=== PATIENT | female | born 1960 | race African-American/Black ===

== ENCOUNTER 2025-01-30 10:05 | Outpatient (CLI) | payer BC, SELFPAY ==
--- OUTSIDE RECORDS SUMMARY | 2024-05-18 16:30 | XMS_ITS ---
Author Organization [facility] Address [address] [place], [place] [address] Care Team Providers Care Engraver Ornamental Design Name Role Phone Lucas Gooden Unavailable [phone] Migration, Provider Unavailable Unavailable REASON FOR VISIT Multum To Medispan Conversion Encounter Medications Medication SIG (Take, Route, Frequency, Duration) Notes Start Date End Date Status Vitamin D (Ergocalciferol) 1.25 MG (85546 UT) 1 cap(s) orally 2 times a week Active Plaquenil 200 MG 1 tab(s) orally once a day Active Losartan Potassium 25 MG 1 tab(s) orally once a day Active Diclofenac Potassium 18 MG 1 CAP(S) ORALLY 3 TIMES A DAY *Please review and pick correct strength-formulatio n from Medispan options. If intended option is not shown, discontinue and re-order from Quick Search* Active diazePAM 2 MG 1 tab(s) orally 1 tab 1 hour prior to MRI; Duration: 0 11/09/2017 Active ANTI INFLAMMATORY QD *Please review for potential replacement for e-prescription and drug interaction check* Active Encounters Encounter Location Date Provider Diagnosis [facility] [address] [place], [place] [id number] 05/18/2024 Provider Migration Tinnitus, left ear H93.12 Assessments Encounter Date Diagnosis (ICD Code) Assessment Notes Treatment Notes Treatment Clinical Notes Section Notes 05/18/2024 Tinnitus, left ear (ICD-10 - H93.12) possible hydrops Plan Of Treatment Medication Medication Name Sig Start Date Stop Date Notes diazePAM 2 MG 1 tab(s) orally 1 ta b 1 hour prior to MRI; Duration: 0 11/09/2017 Progress Notes * Opal DANIELSONOB: 2 (64 yo F)Acc No.[id number]:05/18/2024 Patient: Howie YEPEZ Provider: Monico Peres :1960 A ge:64 Y S ex:Female Date:05/18/2024 Address:[address] [place] [address] , [facility] Subjective: * Chief Complaints: * 1 . Multum To Medispan Conversion Encounter. * Medical History: * Medications: T aking ANTI INFLAMMATORY QD , Notes to Pharmacist: *Please review for potential replacement for e-prescription and drug interaction check*, Taking Losartan Potassium 25 MG Tablet 1 tab(s) orally once a day , Taking Diclofenac Potassium 18 MG CAPSULE 1 CAP(S) ORALLY 3 TIMES A DAY , Notes to Pharmacist: *Please review and pick correct strength-formulation from [facility]. If intended option is not shown, discontinue and re-order from Quick Search*, Taking Vitamin D (Ergocalciferol) 1.25 MG (74411 UT) Capsule 1 cap(s) orally 2 times a week , Taking Plaquenil 200 MG Tablet 1 tab(s) orally once a day Objective: * Vitals: * Physical Examination: Assessment: * Assessment: 1. T innitus, left ear - H93.12 (Primary) N otes :possible hydrops Plan: * Treatment: * Images: * Electronic signature of Prov ider Migration on 01/30/2025 at 10:15 AM CDT Sign off status: Pending * Provider: Monico Peres Date: 1 07/19/2023 Generated for Laury serna/Harman/Lisbethsmitting on: 0 01/30/2025 10:15 AM CDT
--- OUTSIDE RECORDS SUMMARY | 2025-01-30 10:15 | XMS_ITS | Encounter Summary ---
Author Organization [facility] Address [address] [place] [address] Care Team Providers Care Snow Shoveler Name Role Phone Bettie Torres MD Primary Care Provider [phone] Reason for Visit * Reason Onset Date Comments Appointment 02/16/2023 Encounter Details Date Type Department Care Team (Late st Contact Info) Description 02/16/2023 Telephone [facility] - Centralized Scheduling [address] [place] [address] [place] [address] [address] Appointment Social History Tobacco Use Types Packs/Day Years Used Date Smoking Tobacco: Never Alcohol Use Standard Drinks/Week Comments Not Asked 0 (1 standard drink = 0.6 oz pur e alcohol) Comments No Sex and Gender Information Value Date Recorded Sex Assigned at Not on file 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 documented in this encounter Plan of Treatment Not on file documented as of this encounter Visit Diagnoses Not on filedocumented in this encounter Care Teams Snow Shoveler Relationship Specialty Start Date End Date Bettie Torres MD [address] [address] PCP - General Internal Medicine 11/19/24 documented as of this encounter
--- OUTSIDE RECORDS SUMMARY | 2025-01-30 10:16 | XMS_ITS | Clinical Summary ---
Author Organization [facility] Address [address] [facility] [address] [place] [address] Phone Care Team Providers Care Allergy Specialist Name Role Phone Shana Chang MD Unavailable [phone] Abhijeet Glover MD Unavailable [phone] Dev Albarran OD Unavailable Bettie Torres MD Primary Care Provider [phone] Allergies No known active allergies Medications pediatric prbtuzou-lalh-a in (MULTI-VITAMINS WITH IRON) tablet,chewable take by Oral route every 0 9 Active biotin 5 mg capsule 5 mg. 0 0 Active vitamin B complex (COMPLEX B-100) tablet extended release 0 3 Active cholecalciferol (VITAMIN D3) 400 unit capsule 0 3 Active calcium (CALCIO CHELE) 500 mg tablet 500 mg. [address] (VOLTAREN) 75 mg EC tablet Take 1 tablet (75 mg total) by mouth 2 (two) times a day. 180 tablet 1 7 Active montelukast (SINGULAIR) 10 mg tablet TAKE 1 TABLET(10 MG) BY MOUTH EVERY NIGHT 90 tablet 3 9 Active hydrOXYchloroQU INE (PLAQUENIL) 200 mg tablet Take 400 mg by mouth daily 1 Active olmesartan-hydr ochlorothiazide (BENICAR HCT) 40-25 mg per tablet TAKE 1 TABLET BY MOUTH DAILY 90 tablet 2 Active atorvastatin (LIPITOR) 20 mg tablet TAKE 1 TABLET(20 MG) BY MOUTH EVERY NIGHT AT BEDTIME 2 Active cetirizine (ZyrTEC) 10 mg tablet Take 10 mg by mouth daily 2 Active metFORMIN (GLUCOPHAGE) 500 mg tablet TAKE 1 TABLET(500 MG) BY MOUTH DAILY WITH BREAKFAST 2 Active semaglutide (OZEMPIC) 0.25 mg or 0.5 mg(2 mg/1.5 mL) pen injector injection Inject 0.5 mg under the skin once a week 2 Active Active Problems Problem Noted Date Diagnosed Date Seronegative rheumatoid arthritis of multiple si raman 03/06/2022 Anemia 05/10/2017 Connective tissue disease 01/20/2017 High risk medication use 01/20/2017 Vitamin D deficiency 01/20/2017 Chronic right shoulder pain 01/20/2017 Antinuclear factor positive 10/19/2013 Overview (09/08/2016): Positive ANASTASIIA Impingement syndrome of shoulder region 10/20/19 14 Overview (09/08/2016): Shoulder impingement syndrome Arthralgia 10/19/2013 Overview (09/09/2016): Arthralgia Eczema 10/19/2013 Overview (09/10/2016): Eczema Abnormal C-reactive protein 05/25/2011 Overview (09/08/2016): Elevated C-Reactive Protein (CRP) Elevated erythrocyte sedimentation rate 05/25/20 11 Overview (09/08/2016): Elevated Sed Rate Benign hypertension 12/31/2009 Overview (09/10/2016): BENIGN HYPERTENSION Resolved Problems Problem Noted Date Diagnosed Date Resolved Date Postmenopausal bleeding 03/29/201603/06 Overview (09/09/2016): Postmenopausal bleeding Encounters Date Type Department Care Team Description 01/15/2025 9:12 AM CDT - 01/15/2025 11:59 PM CDT Hospital Encounter [facility] [address] [place] [phone] Screening mammogram, encounter for Discharge Disposition: Discharge to home or self care from Last 3 Months Immunizations Immunization Administration Dates Next Due Influenza, Quadrivalent, Rec ombinant, Egg Free, Preservative Free, Intramuscular 03/23/2016 Influenza, Quadrivalent, Spl it, Preservative Free, Intradermal 03/23/2016 Influenza, Quadrivalent, Spl it, Preservative Free, Intramuscular 03/20/2021,03/28/2019,03/01/2018,03/01 Influenza, Split 04/12/2013, 2,04/07/2011,04/15 Influenza, Trivalent, IM (MDV) 04/12/2013,2012,03/07/2011 Influenza, Trivalent, Split, Preservative Free, Intradermal 02/27/2014 Influenza, Unspecified 04/05/2020,2013,04/12/2013,09/03,05/17/2012,04/07/2011,03/07/2011 ,04/15/2010 Pfizer SARS-CoV-2 Monovalent Vaccination (12+ Yrs) KOCH-READY TO USE 09/30/2021 Pfizer SARS-CoV-2 Monovalent Vaccination (12+ Yrs) PURPLE 01/23/2021,09/01/2020,08/11/2020 Tdap 03/01/2018 ZOSTER Recombinant 11/30/2020,09/22/2020 Surgical History Surgery Date Site/Laterality Comments OTHER SURGICAL HISTORY Arthrocentesis of the left shoulder anterior aspect CHOLECYSTECTOMY 06/05/1999 - 06/04/2000 Cholecystectomy Medical History Medical History Date Comments Eczema Eczema History of multiple allergies Al lergies Hypertension Hypertension Bronchitis Bronchitis Anemia Anemia Arthritis Arthritis Hx Other Medical connective tiss ue disease Postmenopausal bleeding 03/29/2016 Postmeno pausal bleeding Family History Medical History Relation Name Comments Hypertension Father Hypertension; Hyperthyroidism Father Hyperthyroid ism; Other Father Cancer -rectal; Prostate cancer Father Cancer -pros san; Diabetes Mother Diabetes mellit us; Diabetes type II Mother Diabetes -T ype II; Other Mother stomach; Other Other 1 No family histo ry of Coronary artery disease; Prostate cancer Other 2 Family histo ry of Cancer -prostate; Diabetes type II Other 3 Family hist ory of Diabetes -Type 2; Hypertension Other 4 Family history of Hypertension; Other Other 5 No family histo ry of Stroke; Cancer Other 6 Family history of Cancer; Diabetes Other 7 Family history of Diabetes mellitus; Hyperthyroidism Sister Hyperthyroid ism; Breast cancer Neg Hx Endometrial cancer Neg Hx Ovarian cancer Neg Hx Pancreatic cancer Neg Hx Thyroid cancer Neg Hx Relation Name Status Comments Father Mother Other 1 Other 2 Other 3 Other 4 Other 5 Other 6 Other 7 Sister Social History Tobacco Use Types Packs/Day Years Used Date Smoking Tobacco: Never Smokeless Tobacco: Never Alcohol Use Standard Drinks/Week Comments Yes 0 (1 standard drink = 0.6 oz pur e alcohol) PHQ-2 Answer Date Recorded PHQ-2 Total Score (If total score is 3 or more points, staff should administer the PHQ-9) 0 09/22/2020 Comments No Sex and Gender Information Value Date Recorded Sex Assigned at Not on file Legal Sex 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 Gender Identity Not on file Sexual Orientation Not on file Obstetrics History Para Term AB IAB SAB Ectopic Multiple Livin g Live Births 1 1 1 Date Outcome GA Total Labor Labor/2nd/3rd Weight Sex Type Anes PTL Yarely A1 A5 Name Clin Term Last Filed Vital Signs Vital Sign Reading Time Taken Comments Blood Pressure 120/77 09/22/2020 1:22 PM CDT Pulse 82 09/22/2020 1:22 PM CDT Temperature 36.8 C (98.2 F) 05/10/2017 3:44 PM TANK FURNACE OPERATOR Respiratory Rate 16 05/10/2017 3:44 PM TANK FURNACE OPERATOR Oxygen Saturation 97% 05/10/2017 3:44 PM TANK FURNACE OPERATOR Inhaled Oxygen Concentration - - Weight 105.2 kg (231 lb 14.8 oz) 01/15/2025 9:16 AM CDT Height 165.1 cm (5' 5) 01/15/2025 9:16 AM CDT Body Mass Index 38.59 01/15/2025 9:16 AM CDT Plan of Treatment Health Maintenance Due Date Last Done Comments Hepatitis B Screening 02/12/1980 Pneumococcal vaccine <65 (1 of 2 - PCV) 1981 Cervical Cancer Screening 06/30/2017 06/30/2016 Depression Screening 09/22/2021 09/22/2020, 03/28/2019, 09/27/2018, Additional history exists Regular Well Visit/Exam 18-64 09/22/2021, 09/27/2018, 03/01/2017 Colon Cancer Screening-Colonoscopy 01/21/2023 01/21/2013 Covid-19 Vaccine (2023-2 5 season) 2024 09/30/2021, 01/23/2021, 09/01/2020, Additional history exists Influenza Vaccine (#1) 2025 , 03/20/2023, 02/24/2022, Additional history exists Breast Cancer Screening-Mammogram 01/15/2027 01/15/2025, 01/06/2024, 12/17/2022, Additional history exists DTaP/Tdap/Td Vaccine (2 - Td or Tdap) 03/01/2028 03/01/2018 Colon Cancer Screening-CT Colonography Discontinued 01/21/2013 Colon Cancer Screening-DNA Stool Discontinued 01/22/20 Colon Cancer Screening-FIT Discontinued 01/21/2013 Colon Cancer Screening-Sigmoidoscopy Discontinued 01/21/2013 Hepatitis C Screening Completed 09/27/2018 Zoster Vaccine Completed 11/30/2020, 09/22/2020 Procedures Procedure Name Priority Date/Time Associated Diagnosis Comments SCREENING MAMMOGRAM BILATERAL W SARKIS Schedule Routine, Read Routine (OP Routine) 01/15/2025 9:33 AM CDT Screening mammogram, encounter for HEPATITIS C ANTIBODY Routine 09/27/2018 7:04 PM CDT Need for hepatitis C screening test HM PAP SMEAR WITH HPV Routine 06/30/2016 COLONOSCOPY REPORT 01/21/2013 from Last 3 Months or Most Recently Relevant to Health Maintenance Results * Screening Mammogram Bilateral W Sarkis (01/15/2025 9:33 AM CDT) Anatomical Region Laterality Modality Breast Bilateral Mammography Impressions 01/15/2025 3:28 PM CDT Bilateral No evidence of malignancy in either breast. OVERALL BI-RADS FINAL ASSESSMENT: 1 - Negative RECOMMENDATION: Recommend bilateral annual screening mammography. Narrative 01/15/2025 3:28 PM CDT EXAMINATION: Screening Mammogram Bilateral W Sarkis: 01/15/2025 COMPARISON: Relevant prior studies available at the time of interpretation were reviewed, including the most recent mammogram on: 01/06/2024. TECHNIQUE: Mammography was performed with 2D and 3D digital breast tomosynthesis (DBT) images. CAD was utilized. BREAST PARENCHYMAL COMPOSITION: There are scattered areas of fibroglandular density. FINDINGS: Bilateral There is no suspicious mass, calcification, or architectural distortion in either breast. [facility] Screening Mammogram IMG MAMMO PROCEDURES Fi nal Result * Hepatitis C antibody (09/27/2018 7:04 PM CDT) Hep C Ab Negative Negative [facility] Blood specimen (specimen) 09/27/2018 7:04 PM CDT 09/27/2018 7:05 PM CDT Narrative [facility] - 09/27/2018 9:13 PM CDT Bradley August MD LAB MICROBIOLOGY - [facility] ORDERABLES Final Result JORJE [id number] [facility] Department [place] [address] * HM PAP SMEAR WITH HPV (06/30/2016) HM Pap smear Normal Historical Provider HEALTH MAINTENANCE Final Result * COLONOSCOPY REPORT (01/21/2013) Anatomical Region Laterality Modality Other Narrative 01/21/2013 Ordered by an unspecified provider. Historical Provider GI PROCEDURE ORDERABLES F inal Result from Last 3 Months or Most Recently Relevant to Health Maintenance Insurance [facility] Member Subscriber Plan / Payer ( fective 2015-Present) Name:Howie Danielson Relation to Subscriber:Self Name:Howie Danielson Payer ID:[id number] (NAIC) Group ID:[id number] Type:ALEXANDRA MARIN Address: [facility] [id number] [place] [id number] Care Teams Allergy Specialist Relationship Specialty Start Date End Date Bettie Torres MD [address] [place] [address] PCP - General Internal Medicine 11/11/22 Shana Chang MD [address] [facility] [address] [place] [address] Consulting Physician Obstetrics and Gynecology 09/22/20 Abhijeet Glover MD [address] [facility] [address] [place] [address] Consulting Physician Rheumatology 10/25/20 Dev Albarran OD [address] [address] Optometry 11/15/20
--- OUTSIDE RECORDS SUMMARY | 2025-01-30 10:16 | XMS_ITS | Patient Health Record ---
Author Organization [facility] Address [address] [place], [place] [address] Care Team Providers Care Ota Name Role Phone LIBIA PEARL, JEFF SIMON Primary Care Provide r Unavailable kealbertinaKumar De Los Santos Unavailable [phone] ALLERGIES Allergen (clinical drug ingredient) Drug/Non Drug Allergy documented on EMR Reaction Allergy Type Onset Date Status none (uncoded) Unknown Allergy Activ e REASON FOR REFERRAL No Information MEDICATIONS Medication SIG (Take, Route, Frequency, Duration) Notes Start Date End Date Status Vitamin C Active biotin Active hydroxychloroquine 200 mg 2 tab(s) orall y once a day for 90 days Active hydrochlorothiazide-losartan 25 mg-100 mg 1 tab(s) orally once a day Active diclofenac sodium 75 mg 1 tab(s) orally 1-2 times a day Active Vitamin D3 2000 intl units 1 tab(s) oral ly once a day Active SOCIAL HISTORY Tobacco Use: Social History Observation Description Date Details (start date - stop date) Never Smoker NA - NA Sex Assigned At : Social History Observation Description Sex Assigned At Unknown Tobacco Use: Question Answer Notes Smoking Status nonsmoker PROBLEMS Problem Type ICD Code Onset Dates Problem Status W/U Status Risk SNOMED Code Notes Problem Hypertension, unspecified type (I10) Active confirmed 29327092 Problem Nonsmoker (Z78.9) Active confirmed 8392 000 Problem Polyarthralgia (M25.50) Active confirmed 92446472 Problem Other termite inspector (current) drug therapy (Z79.899) Active confirmed 590155730 Problem Low back pain (M54.5) Active confirmed 971506179 Problem Positive ANASTASIIA (antinuclear antibody) (R76.8) Active confirmed 248764667 PLAN OF TREATMENT No Information Insurance Providers Payer Name Payer Address Payer Phone Subscriber Number Group Number Insured Name Patient Relationship to Insured Coverage Start Date Coverage End Date [facility] [address] [address] [place] [address] [id number] Howie Landers Self - patient is the insured 6 MEDICAL (GENERAL) HISTORY Medical History History ICD Code poor circulation gas vaginal discharge HT IBS hemorrhoids nausea cataracts hearing loss anemia occasional tension headache tinnitus sinus problems high blood pressure constipation irritable bowel syndrome gallstones Surgical History Surgery Date(Month/Year) cholecystectomy 1999 gallbladder surgery 1999 Hospitalization History Reason Date(Month/Year) None
--- OUTSIDE RECORDS SUMMARY | 2025-01-30 10:16 | XMS_ITS | Clinical Summary ---
Author Organization [facility] Address [address] [facility] [place] [address] Care Team Providers Care Ict Support Technicians Name Role Phone Unavailable Primary Care Provider Unavailabl e Allergies No known active allergies Medications cholecalciferol , vitamin D3, (Cholecalcifero l, VitD3,, Bulk,) 100,000 unit/gram Powder Take 400 Int'l Units by mouth daily. Active multivitamin (MULTIPLE VITAMINS ORAL) Take 1 Tablet by mouth daily. Active losartan-hydroC HLOROthiazide (HYZAAR) 100-25 mg tablet Take 1 Tablet by mouth daily. Active olmesartan-hydr oCHLOROthiazide (BENICAR-HCT) 40-25 mg tablet Take 1 Tablet by mouth daily. 2 Active ondansetron (ZOFRAN) 4 mg Tablet 2 Active semaglutide 0.25 mg or 0.5 mg(2 mg/1.5 mL) Pen Injector Inject 0.5 mg by subcutaneous injection. 2 Active cetirizine (ZyrTEC) 10 mg tablet Take 10 mg by mouth daily. 2 Active atorvastatin (LIPITOR) 20 mg tablet TAKE 1 TABLET(20 MG) BY MOUTH EVERY NIGHT AT BEDTIME 2 Active hydrOXYchloroQU INE (PLAQUENIL) 200 mg tablet 2 Active diclofenac sodium (VOLTAREN) 75 mg Tablet, Delayed Release (E.C.) TAKE 1 TABLET BY MOUTH TWICE DAILY FOR FLARE UPS ONLY 2 Active Active Problems No known active problems Family History Medical History Relation Name Comments Breast Cancer Neg Hx Colon Cancer Neg Hx Ovarian Cancer Neg Hx Relation Name Status Comments Brother Alive Father Maternal Grandfather Maternal Grandmother Mother Paternal Grandfather Paternal Grandmother Sister 1 Alive Sister 2 Alive Sister 3 Alive Sister 4 Alive Social History Tobacco Use Types Packs/Day Years Used Date Smoking Tobacco: Never Tobacco Cessation:Counseling Given: Not Answered Alcohol Use Standard Drinks/Week Comments Yes 0 (1 standard drink = 0.6 oz pur e alcohol) occasionally Comments No Sex and Gender Information Value Date Recorded Sex Assigned at Not on file Legal Sex Female 9:35 AM CDT Gender Identity Not on file Sexual Orientation Not on file Occupation Industry Job Start Date Job End Date accounting Not on file Not on file Not on file Last Filed Vital Signs Vital Sign Reading Time Taken Comments Blood Pressure 116/78 03/24/2022 1:58 PM CDT Pulse 99 03/24/2022 1:58 PM CDT Temperature - - Respiratory Rate - - Oxygen Saturation - - Inhaled Oxygen Concentration - - Weight 104.8 kg (231 lb) 03/24/2022 1:58 PM CDT Height 165.1 cm (5' 5) 03/24/2022 1:58 PM CDT Body Mass Index 38.44 03/24/2022 1:58 PM CDT Plan of Treatment Health Maintenance Due Date Last Done Comments COLORECTAL SCREENING 2007 Colorectal Cancer Screening 2007 FIT-DNA Q 3 years 2007 FIT/FOBT Q 1 year 2007 Flex Sig/CT Colonography Q 5 years 2007 RSV VACCINE (60+ or ) (1 - Risk 60-74 years 1-dose series) 2022 BREAST CANCER SCREENING 11/20/2022 11/21/19, 11/20/2021, 10/10/2020, Additional history exists COVID-19 Vaccine (2023-2 5 season) 2024 09/30/2021, 01/23/2021, 09/01/2020, Additional history exists INFLUENZA VACCINE (#1) 2025 , 03/23/2016, 03/23/2016, Additional history exists PAP SMEAR 03/24/2025 03/24/2022 CERVICAL CANCER SCREENING 03/24/2027 HPV/Cotest (21-29) 03/24/2027 03/24/2022 HPV/Cotest (30-65) 03/24/2027 03/24/2022 DTAP/TDAP/TD VACCINES (2 - T d or Tdap) 03/01/2028 03/01/2018 ZOSTER VACCINE Completed 11/30/2020, 09/22/2020 Procedures Procedure Name Priority Date/Time Associated Diagnosis Comments CERV/VAG CYTO AGE BASED SCREEN PAP Routine 03/24/2022 2:52 PM CDT Well woman exam with routine gynecological exam from Last 3 Months or Most Recently Relevant to Health Maintenance Results * CERV/VAG CYTO AGE BASED SCREEN PAP (03/24/2022 2:52 PM CDT) COMMENT (PAP): [facility] Comment: This order for age-based cervical cancer and STI screening follows ACOG guidelines(PB 168, 140, AHO915). See individual assays for performing site location. CLINICAL INFORMATION [facility] Comment:SCREENING LAST MENSTRUAL PERIOD [facility] Comment:NONE GIVEN PREV PAP: [facility] Comment:NONE GIVEN PREV BX: [facility] Comment:NONE GIVEN SOURCE [facility] Comment:Endocervix ADEQUACY: [facility] Comment: Satisfactory for evaluation. Endocervical/transformation zone component present. Age and/or menstrual status not provided PAP INTERP [facility] Comment:Negative for intraep ithelial lesion or malignancy. COMMENT (PAP TEST) [facility] Comment: This Pap test has been evaluated with computer assisted technology. BUILDING DRAFTER: Alanna Dias Comment: LM, CT(ASCP) CT screening location: [place] [address] [address] [place] [address] [address] [address] BUILDING DRAFTER: Angelique Dias Comment: MEF, CT(ASCP) CT screening location: [place] [address] [address] [place] [address] [address] Parvin Dias Comment: EXPLANATORY NOTE: The Pap is a screening test for cervical cancer. It is not a diagnostic test and is subject to false negative and false positive results. It is most reliable when a satisfactory sample, regularly obtained, is submitted with relevant clinical findings and history, and when the Pap result is evaluated along with historic and current clinical information. HPV E6/E7 Not Detected Not Detected [facility] Comment: Methodology: Image Assembler-Mediated Amplification This assay detects E6/E7 viral messenger RNA (mRNA) from 14 high-risk HPV types (16,18,31,33,35,39,45,51,52,56,58,59,66,68). Cervical sources are required for HPV testing. If a vaginal source from a patient who has had a total hysterectomy with removal of cervix was submitted, please contact the testing laboratory for alternative testing options. For additional information, please refer to http://education.Process Data Control/faq/HJE095o3 (This link if provided for information/ educational purposes only.) Test Performed at: [facility] [id number] [id number] Erik Gaytan D.O., MPH SL Genital SWAB OF ENDOCERVIX / Unknown 03/24/2022 2:52 PM CDT 03/24/2022 11:57 PM CDT Betty Aguilar NP PATHOLOGY/CYTOLOGY ORDERABLES F inal Result [facility] [phone] [facility] [id number] [phone] from Last 3 Months or Most Recently Relevant to Health Maintenance Insurance [facility] [employer]
--- OUTSIDE RECORDS SUMMARY | 2025-01-30 10:16 | XMS_ITS | Clinical Summary ---
Author Organization [facility] Address [address] [place] [address] Care Team Providers Care Lead Neurodiagnostic Technologist Name Role Phone Bettie Torres MD Primary Care Provider [phone] Source Comments [facility],non-owned Affiliates and Associated Physician Practices is amultiple site organization consisting of ambulatory clinics and hospital sitesin [place], [place], [place] and [place]. This disclosure is being madepursuant to the Care Everywhere program and may not contain all information available regarding this patient. Last updated 18.[facility] Allergies No known active allergies Medications * Be aware that medications may not be up to date on this document. Alwaysverify current medications with the patient. DICLOFENAC PO Take 75 mg by mouth once daily. Active hydroxychloroq uine (PLAQUENIL) 200 MG tablet Take 2 (two) tablets by mouth once daily Active Cholecalcifero l (VITAMIN D PO) Take 400 Int'l Units by mouth. Active Multiple Vitamin (MULTI VITAMIN DAILY PO) Take 1 Tab by mouth. 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 Up-to-date with eye exam. Compliance with medications. Vitamin D deficiency 01/20/2017 02/21/2023 Eczema 10/19/2013 02/21/2023 Overview (02/21/2023): Eczema Encounters Date Type Department Care Team Description 11/19/2024 10:08 AM CDT - 11/19/2024 11:59 PM CDT Hospital Encounter [facility] - Ultrasound [address] [place] [address] Dasha Mendez MD Discharge Disposition: Home or Self Care 11/19/2024 Results Follow-Up [facility] - [facility] [address] [place] [address] Dasha Mendez MD 11/06/2024 2:30 PM CDT Office Visit [facility] - [facility] [address] [place] [address] Dasha Mendez MD PMB (postmenopausal bleeding) (Primary Dx) from Last 3 Months Immunizations Immunization Administration Dates Next Due COVID MODERNA 12+ yr 50mcg/0.5mL 04/04/2024,04/05 COVID MODERNA BIVALENT 12Y+ 50MCG/0.5ML 04/30/2022 FLU VACCINE QUAD IIV4 PF ID 03/23/2016 FLU VACCINE TRI IIV3 SPLIT I M (FLUVIRIN) 04/12/2013 INFLUENZA VACCINE 04/05/2020, 4,09/03/2012,2011,04/07/2011,03/07/2011,04/15/2010 INFLUENZA VACCINE, QUADR. (F LUZONE; FLULAVAL; FLUARIX; AFLURIA QUADRIVALENT; 6MO+), 0.5 ML (IIV4) 03/20/2023,02/24/2022,03/20/2021,2018,03/01/2018,03/01/2017 INFLUENZA VACCINE, TRIV. (FL UZONE; FLULAVAL; FLUARIX; AFLURIA TRIVALENT; 6MO+), 0.5 ML (IIV3) 04/03/2024 TDAP, HISTORIC VACCINE 03/01/2018 Zoster Hzv Vacc Recombinant Inj Im 11/30/2020, Family History Medical History Relation Name Comments Hypertension Father Leukemia Father Cancer - Pancreatic Mother Diabetes - Type 2 Mother High Cholesterol Mother Hypertension Mother CAD (Coronary Artery Disease) Paternal Grandfather Relation Name Status Comments Father Maternal Grandfather Maternal Grandmother Mother Paternal Grandfather Paternal Grandmother Social History Tobacco Use Types Packs/Day Years Used Date Smoking Tobacco: Never Alcohol Use Standard Drinks/Week Comments Yes 0 (1 standard drink = 0.6 oz pur e alcohol) occ PHQ-2 Answer Date Recorded Patient Health Questionnaire-2 Score 0 11/06/2024 Comments No Sex and Gender Information Value Date Recorded Sex Assigned at Not on file Legal Sex Female 9:18 AM VISION THERAPIST Gender Identity Not on file Sexual Orientation Not on file Last Filed Vital Signs Vital Sign Reading Time Taken Comments Blood Pressure 124/64 11/06/2024 2:38 PM CDT Pulse 108 11/06/2024 2:38 PM CDT Temperature - - Respiratory Rate - - Oxygen Saturation - - Inhaled Oxygen Concentration - - Weight 95.3 kg (210 lb) 11/06/2024 2:38 PM CDT Height 165.1 cm (5' 5) 11/06/2024 2:38 PM CDT Body Mass Index 34.95 11/06/2024 2:38 PM CDT Plan of Treatment Health Maintenance Due Date Last Done Comments COLOGUARD (AGES 45-75) - COLON CA SCREENING 1962 CT COLONOGRAPHY - COLON CA SCREENING 1962 FIT - COLON CA SCREENING 1962 FLEX SIG - COLON CA SCREENING 1962 HIV SCREENING 1977 PNEUMOCOCCAL VACCINE 50+ (1 of 1 - PCV) 02/12/2012 Respiratory Syncytial Virus (RSV) Vaccine Pt: or over 60 yrs (1 - Risk 60-74 years 1-dose series) 2022 INFLUENZA VACCINE (#1) 2025 4, 03/20/2023, 02/24/2022, Additional history exists MAMMOGRAM 01/05/2026 01/06/2024, 08/0 08/2023, 01/06/2024, Additional history exists PAP with HPV 03/24/2027 03/24/2022 (Done Outside Per Report) SCREENING FOR DIABETES 09/04/2027 5, 09/02/2024, 09/02/2024, Additional history exists DTAP/TDAP/TD VACCINES (2 - Td or Tdap) 03/01/2028 03/01/2018 COLON MONITORING 09/17/2033 09/18/2023 COLONOSCOPY - COLON CA SCREENING 09/17/2033 09/18/2023 Colorectal Cancer Screening 09/17/2033 ZOSTER VACCINE Completed 11/30/2020, 09/22/2020 HEPATITIS C SCREENING Completed 09/06/2021 COVID-19 VACCINE Completed 04/04/2024, , 04/30/2022, Additional history exists DEPRESSION SCREENING Completed 11/06/2024 HEPATITIS B VACCINE Aged Out No longe r eligible based on patient's age to complete this topic HIB VACCINE Aged Out No longer eligi ble based on patient's age to complete this topic HPV VACCINE Aged Out No longer eligi ble based on patient's age to complete this topic MENINGOCOCCAL (Group B) VACCINE SHARED DECISION-MAKING Aged Out No longer eligible based on patient's age to complete this topic MENINGOCOCCAL GROUPS A/C/Y/W VACCINE Aged Out No longer eligible based on patient's age to complete this topic Procedures Procedure Name Priority Date/Time Associated Diagnosis Comments US PELVIS W TRANSVAG NON OB Routine 11/19/2024 10:39 AM CDT PMB (postmenopausal bleeding) from Last 3 Months Results * US Pelvis W Transvag Non Ob (11/19/2024 10:39 AM CDT) Anatomical Region Laterality Modality Pelvis Ultrasound 11/19/2024 10:5 9 AM CDT Impressions 11/19/2024 11:00 AM CDT IMPRESSION: 1. Thickened endometrial stripe at 9 mm. 2. The right ovary is not identified. > Interpreting Provider: Chyna Dove MD on 11/19/2024 11:00 AM Narrative 11/19/2024 11:00 AM CDT PROCEDURE: US PELVIS W TRANSVAG NON OB DATE/TIME OF EXAM: 11/19/2024 10:39 AM CLINICAL INFORMATION: None relevant/not provided if blank. Indication: N95.0: PMB (postmenopausal bleeding) Additional History: COMPARISON: July 05, 2014 TECHNIQUE: Ultrasound of the pelvis was performed utilizing standard protocol. FINDINGS: The uterus measures 5.7 x 2.5 x 3.6 cm. A small nabothian cyst is unchanged. The endometrial stripe is thickened measuring 9 mm. The right ovary is not visualized. The left ovary appears normal and measures 5 x 8 x 4 mm. Normal color flow is seen in the left ovary. No free fluid is noted. Procedure Note Chyna Dove MD - 11/19/2024 PROCEDURE: US PELVIS W TRANSVAG NON OB DATE/TIME OF EXAM: 11/19/2024 10:39 AM CLINICAL INFORMATION: None relevant/not provided if blank. Indication: N95.0: PMB (postmenopausal bleeding) Additional History: COMPARISON: July 05, 2014 TECHNIQUE: Ultrasound of the pelvis was performed utilizing standard protocol. FINDINGS: The uterus measures 5.7 x 2.5 x 3.6 cm. A small nabothian cyst is unchanged. The endometrial stripe is thickened measuring 9 mm. The right ovary is not visualized. The left ovary appears normal and measures 5 x 8 x 4 mm. Normal colorflow is seen in the left ovary. No free fluid is noted. IMPRESSION: 1. Thickened endometrial stripe at 9 mm. 2. The right ovary is not identified. > Interpreting Provider: Chyna Dove MD on 11/19/2024 11:00 AM Dasha Mendez MD US ORDERABLES Final Resul t from Last 3 Months Insurance ANTH Care Teams Lead Neurodiagnostic Technologist Relationship Specialty Start Date End Date Bettie Torres MD [address] [address] PCP - General Internal Medicine 11/19/24
--- OUTSIDE RECORDS SUMMARY | 2025-01-30 10:16 | XMS_ITS | Patient Health Record ---
Author Organization [facility] Address [address] [place], [place] [id number] Care Team Providers Care Seat Mender Name Role Phone Lucas Gooden Unavailable [phone] Migration, Provider Unavailable Unavailable Reason For Referral No Information Medications Medication SIG (Take, Route, Frequency, Duration) Notes Start Date End Date Status ANTI INFLAMMATORY QD *Please review for potential replacement for e-prescription and drug interaction check* Active Vitamin D (Ergocalciferol) 1.25 MG (52779 UT) 1 cap(s) orally 2 times a [...] prior to MRI; Duration: 0 11/09/2017 Active Problems Problem Type SNOMED Code ICD Code Onset Dates Problem Status W/U Status Risk Notes Problem Sensorineural hearing loss, bilateral (H90.3) Active confirmed Problem Tinnitus of left ear (83898002605 06) Tinnitus, left ear (H93.12) Active confirmed possible hydrops Encounters Encounter Location Date Provider Diagnosis [facility] [address] [place], [place] [id number] 05/18/2024 Provider Migration Tinnitus, left ear H93.12 Assessments Encounter Date Diagnosis (ICD Code) Assessment Notes Treatment Notes Treatment Clinical Notes Section Notes 05/18/2024 Tinnitus, left ear (ICD-10 - H93.12) possible hydrops Plan Of Treatment No Information Insurance Providers Payer Name Payer Address Payer Phone Subscriber Number Group Number Insured Name Patient Relationship to Insured Coverage Start Date Coverage End Date [facility] [address] [place] [address] [id number] Howie Landers Self - patient is the insured Medical (General) History Medical History History ICD Code Pertinent Medical History: S inusitis, Ear problems, High blood pressure, Other, Surgical History Surgery Date(Month/Year) [facility] 10/1999
[2025-01-30 10:28] LABS: Hematocrit 38.6 % (37.0-47.0); Hemoglobin 12.1 g/dL (12.0-15.0)
== END 2025-01-30 10:06 | disposition home or self-care (01) ==
LOC: ANHSURGERY 10:08
PROVIDERS: Anesthesiology; PCP Internal Medicine; Visit Provider Obstetrics & Gynecology
DX: Z78.9 Other specified health status (principal)
CPT/HCPCS: 36415; 85014; 85018

== ENCOUNTER 2025-02-07 00:25 | Day surgery (SDC) | payer BC, SELFPAY ==
[2025-01-28 14:41] VITALS: BMI 35.1
--- NOTE | 2025-01-28 15:23 | PC.NURSE ---
Report to the Outpatient Waiting Room, entrance under the green pavilion located off [facility], at time _0630 on date __02/07/2025 . Planned Procedure Time: __.829 .? Time changes happen often and if your time is changed the preop area will call you the afternoon before. - You and your visitor will be asked to self-screen and do not enter if you have any COVID symptoms. Please call surgeon if you need to reschedule. - A mask is optional within the hospital at this time. Patients may have clear liquids (water, carbonated beverages, clear teas, apple juice) until 3 hours prior to surgery with a maximum of 20 ounces. - No food from midnight until time of surgery and no smoking, or chewing tobacco (or any form of nicotine). No chewing gum, candy or mints. - Infants may have breast milk until 4 hours before surgery, formula 6 hours prior to surgery. - Children will be allowed to drink immediately following surgery.? If applicable, please bring a bottle or sippy cup to assist with drinking. Juice, water, soda, and popsicles are readily available.? For infants on formula, please bring formula the day of surgery.? Pacifiers are allowed. Take only the following medications with a SIP of water on the morning of surgery: ___Nothing DO NOT STOP ANY OF YOUR OTHER PRESCRIPTION MEDICATIONS PRIOR TO SURGERY EXCEPT THE FOLLOWING Hold all vitamins and supplements for 3 days per anesthesiologist. Medications to discontinue per physician ____Semaglutide for 10 days, Vitamins for 3 days___ Please no make-up, nail chinese, hairspray, perfume, deodorant, or body powder the day of surgery.? No jewelry (including any body piercings) or valuables the day of surgery, leave them at home.? Please take a shower or bath the night before, or the morning of, surgery with an antibacterial soap.? Wear comfortable, loose fitting clothing.? Children are encouraged to wear pajamas. - Jewelry must be removed prior to entering the operating room.? Rings and piercings that are not removed may be cut off. - The hospital will not accept responsibility for valuables.? - Please leave all valuables, including medications, at home the day of surgery. If you are going home after surgery, a licensed shuttle driver must drive you home.? - NO public transportation without another adult if you receive anesthesia. - We recommend that an adult stay with you for 24 hours following discharge. - We also recommend that you do not drive, make important decision, drink alcoholic beverages, or take any drugs that were not prescribed by your health care provider for at least 24 hours after your discharge time. For Pediatric surgeries, we recommend two adults accompany the child home. Follow any additional instructions given to you from your surgeon. Telephone instructions given to and asked if any additional questions and then verbalized understanding. Patient advised to call surgeon office or pre surgery nurse liaison [phone] if any additional questions.
[2025-02-07] MEDS: LACTATED RINGERS 1,000 ML 30 ML IV CONT (06:50)
[2025-02-07] MEDS: ACETAMINOPHEN 500 MG TABLET 1000 MG PO (06:55)
[2025-02-07 07:00] VITALS: BP 133/59; PULSE 103; RESP 16; TEMP 36.1; O2SAT 100; BMI 35.9
--- NOTE | 2025-02-07 07:20 | WPDHPUPDATE1 ---
History and Physical Update Update Date/Time: 02/07/25 07:20 History and Physical has been reviewed, including an updated exam of the patient. There are NO changes in the patient's condition. Risks, benefits, and alternatives have been discussed and questions answered. Patient agrees to proceed with procedure, hysteroscopy and dilation and curettage and removal of lesion if present.
--- NOTE | 2025-02-07 08:12 | P.PNAN_ITS ---
Anes - Initial Pre Proc Eval Procedure: Operation Date: 02/07/25 08:30 Proposed Procedures p Hysteroscopy Dilation and Curettage with Removal of any Endometrial Lesion, If Necessary - Jose J Pulido MD Date/Time: 02/07/25 08:12 Surgeon: Jose J Pulido MD Pre Op Diagnosis: post menopausal bleeding, thickened endometrial st Patient Data Age: 64 Gender: F Height: 1.64 m Weight: 96.5 kg Last Vital Signs Temp 97 F L 02/07/25 07:00 Pulse 103 H 02/07/25 07:00 Resp 16 02/07/25 07:00 BP 133/59 L 02/07/25 07:00 Pulse Ox 100 02/07/25 07:00 O2 Del Method Room Air 02/07/25 07:00 Allergies Allergy/AdvReac Type Severity Reaction Status Date / Time No Known Allergies Allergy Verified 01/28/25 14:37 Home Medications ?Medication ?Instructions ?Recorded ?Confirmed ?Type atorvastatin 10 mg tablet (Lipitor) 10 mg PO DAILY 01/28/25 History hydroxychloroquine 100 mg tablet 100 mg PO BID 5 01/28/25 History olmesartan 40 mg tablet 40 mg PO DAILY 01/01/2501/04 History semaglutide (weight loss) 0.25 0.25 mg subcut WEEKLY 0 01/01/25 01/28/25 History mg/0.5 mL subcutaneous pen injector (Wegovy) cetirizine 5 mg tablet (Allergy 5 mg PO DAILY PRN marquita rgy symptoms 01/28/25 01/28/25 History Relief (cetirizine)) dapagliflozin propanediol 10 mg 10 mg PO DAILY 5 01/28/25 History tablet (Farxiga) iron 22 mg PO DAILY 01/28/25 0910/27 History multivitamin (Daily Multi-Vitamin 1 tablet PO DAILY 02/07/25 History tablet) Patient hx anesthesia problems: none Family hx anesthesia problems: none Results Review: All pre-operative results and documents have been reviewed as part of the pre- operative evaluation. [facility] Past Medical History Medical History Spontaneous Arthritis Anemia Surgical History Surgical History H/O wisdom tooth extraction Hx of cholecystectomy Family History Family History Father Hypertension Cancer Mother Hypertension Cancer Social History Social History Smoking status: Never smoker Alcohol intake: current Drinks per week: 2 Alcohol use details: Wine Substance use: never Substance use type: does not use Living arrangements: with family Spiritual care concerns: No Anes - Eval Final PreProcedure Day of Procedure 02/07/25 08:12 Patient weight: obese Lungs: normal air movement Airway: Mallampati scale class II Neurological: alert and oriented Last oral intake: >/= 8 hours ASA classification: III Emergent: no Anesthetic plan: proceed Anesthesia type and monitoring: general GIVS and standard monitoring Results Review: All pre-operative results and documents have been reviewed as part of the pre- operative evaluation. HTN, hyperlipidemia, pt prev on GLP1, off approx 2 weeks. Informed Consent: The patient's anesthetic plan and its attendant risks and benefits were discussed with the patient/family/POA. Questions were solicited and answers provided to the satisfaction of the patient/family/POA.
--- NOTE | 2025-02-07 08:20 | PM.IMHP ---
H&P: HPI History of Present Illness Date/Time: 02/07/25 08:20 Chief Complaint: postmenopause bleeding Narrative: Patient with episode of postmenopause bleeding. thickened endometrial stripe on ultrasound. She opted for hysteroscopy and curettage and removal of lesion if present. Review of Systems Review of Systems: All systems reviewed & are unremarkable except as noted in HPI and below Cardiovascular: Cardiovascular: Reports no additional cardiovascular complaints, Denies chest pain and Denies dyspnea Respiratory: Respiratory: Reports no additional respiratory complaints and Denies dyspnea Gastrointestinal: Gastrointestinal: Reports abdominal pain, Denies change in bowel habits, Denies diarrhea, Denies nausea and Denies vomiting Genitourinary: Genitourinary: Reports pelvic pain Musculoskeletal: Musculoskeletal: Reports back pain Integumentary/Breasts: Skin/Breast: Reports system reviewed and no additional complaints, except as docu Neurologic: Reports system reviewed and no additional complaints, except as documented [facility] Past Medical History Medical History Spontaneous Arthritis Anemia Surgical History Surgical History H/O wisdom tooth extraction Hx of cholecystectomy Family History Family History Father Hypertension Cancer Mother Hypertension Cancer Social History Social History Smoking status: Never smoker Alcohol intake: current Drinks per week: 2 Alcohol use details: Wine Substance use: never Substance use type: does not use Living arrangements: with family Spiritual care concerns: No Meds Home Medications and Allergies Home Medications ?Medication ?Instructions ?Recorded ?Confirmed ?Type atorvastatin 10 mg tablet (Lipitor) 10 mg PO DAILY 01/01/25 01/28/25 History hydroxychloroquine 100 mg tablet 100 mg PO BID 01/01/25 01/28/25 History olmesartan 40 mg tablet 40 mg PO DAILY 01/01/25 01/28/25 History semaglutide (weight loss) 0.25 0.25 mg subcut WEEKLY 01/01/25 01/28/25 History mg/0.5 mL subcutaneous pen injector (Wegovy) cetirizine 5 mg tablet (Allergy 5 mg PO DAILY PRN allergy symptoms 01/28/25 01/28/25 History Relief (cetirizine)) dapagliflozin propanediol 10 mg 10 mg PO DAILY 01/28/25 01/28/25 History tablet (Farxiga) iron 22 mg PO DAILY 01/28/25 02/07/25 History multivitamin (Daily Multi-Vitamin 1 tablet PO DAILY 01/28/25 02/07/25 History tablet) Allergies Allergy/AdvReac Type Severity Reaction Status Date / Time No Known Allergies Allergy Verified 01/28/25 14:37 Vital Signs Vital Signs - 24 hr 02/07/25 07:00 Temperature 97 F L Pulse Rate 103 H Respiratory Rate 16 Blood Pressure 133/59 L Pulse Oximetry 100 Oxygen Delivery Room Air Exam Const: Orientation/consciousness: oriented to person and oriented to place HENMT: Head: normal to inspection Eyes: General: appearance normal, both eyes and all related structures Resp: Effort & Inspection: normal respiratory effort Auscultation: clear to auscultation bilaterally Cardio: Rate: regular rate Rhythm: regular rhythm GI: Inspection: normal to inspection GI Palp: No Rebound tenderness present Neuro: General: oriented to person and oriented to place Cognition (Neuro): normal cognition Extrem: General: normal to inspection Psych: Appearance: grossly normal and well kempt Assessment and Plan Assessment and plan (1) Postmenopause bleeding: Code(s): N95.0 - Postmenopausal bleeding Status: Acute Assessment and Plan: Will proceed with hysteroscopy and dilation and curettage and removal of lesion if present. (2) Thickened endometrium: Code(s): R93.89 - Abnormal findings on diagnostic imaging of other specified body structures Status: Acute
[2025-02-07] MEDS: ceFAZolin 2 GM in SODIUM CHLORIDE 0.9% IV 50 ML 100 ML IVPB (08:35)
[2025-02-07] MEDS: LIDOCAINE 1% BUFFERED WITH 8.4% SODIUM BICARB 1 ML SYRINGE 10 ML INFILTRATE (08:40)
--- NOTE | 2025-02-07 08:46 | S_PTH ---
PATIENT: Howie Landers LOC: [facility] [place][id number] AGE/SX: 64/F ROOM: RE02/07/[address]: Jose J Pulido MD : 1960 BED: DIS: 02/07/2025 SPEC #: [id number] RECD: 02/07/25 09:43 STATUS: NICOLAS REQ #: [id number] KENNEDY: 02/07/25 08:[address]: Jose J Pulido DEPT: [facility] Surgical RECD BY: Nancy Lizama ENTERED: 02/07/25 09:43 SP TYPE: Surgical OTHR DR: Bettie Torres, Tissues: A - Endometrial Curettings Procedures: Hematoxylin and Eosin Stain Estrogen Receptor Immuno Progestogen Receptor immuno Gross and Microscopic Level 4 P53 MLH1 MSH2 MSH6 PMS2 Vimentin P16
--- NOTE | 2025-02-07 08:48 | SUR.OPER ---
fluid deficit 130
[2025-02-07 08:55] VITALS: BP 106/60; PULSE 87; RESP 16; O2SAT 100
[2025-02-07 09:25] VITALS: BP 115/59; PULSE 79
--- NOTE | 2025-02-07 09:40 | W.PM.PROC2 ---
Procedure Note - Detailed Date of Procedure 02/07/25 Pre-op Diagnosis post menopausal bleeding, thickened endometrial stripe Post-op Diagnosis Same Procedure Performed Hysteroscopy with removal of endometrial lesion and dilation and curettage Surgeon Jose J Pulido MD Anesthesia MAC and Local Indications postmenopausal bleeding Findings uterine cavity with several calcified appearing lesions at the posterior lower uterus and anterior uterus appeared consistent with calcified fibroid several areas with possible polyp all areas were removed with the Aveta instrument and a subsequent curettage performed Description of Procedure After informed consent was obtained patient was taken to the operating room and adequate IV sedation was administered. Attention was turned to the vagina. Speculum was inserted. Single-tooth tenaculum placed on the anterior lip of the cervix. 1% lidocaine was injected at the cervical vaginal interface at the 258 and 10 position. The uterus was sounded to 8 cm. The cervix was dilated to an 8 Castro dilator. The hysteroscope was inserted into the cavity. Findings of several lesions consistent with possible calcified fibroids or polyps. Small. The small Aveta instrument was used to remove the lesions. The rest of the cavity was atrophic appearing. The hysteroscope was removed. A curettage was performed. The single-tooth tenaculum was removed hemostasis was noted at the tenaculum site. Sponge count correct. The patient taken to recovery in stable condition. Estimated Blood Loss 5 Drains No Packing No Pathology Yes ( Endometrial curettings and shavings) Complications No immediate complications Condition Stable Disposition Same day [facility] Billing Surgery - Charge Forward: Surgery Billing
[2025-02-07] MEDS: oxyCODONE HCL (*CRX) 5 MG TAB IR PO (09:42)
[2025-02-07 09:55] VITALS: BP 124/55; PULSE 68
== END 2025-02-07 10:17 | disposition home or self-care (01) ==
PROVIDERS: PCP Internal Medicine; Visit Provider Obstetrics & Gynecology
PROC: 0U5B8ZZ Destruction of Endometrium, Via Natural or Artificial Opening Endoscopic (ICD-10-PCS; CPT 58563; principal; 2025-02-07 08:30)
DX: C54.1 Malignant neoplasm of endometrium (principal); N95.0 Postmenopausal bleeding
CPT/HCPCS: 58558; 88305; 88342; J0690; A9270; J2003; J2250; J2405; J2704; J3010; J7120